=== PATIENT | female | born 2000 | race Caucasian/White ===

== ENCOUNTER 2019-08-02 22:49 | Emergency (ER) | payer OTHER ==
[2019-08-02] MEDS ORDERED: HYDROmorphone 0.5 MG/0.5 ML Syringe IVPUSH ONE (23:22)
[2019-08-02] MEDS ORDERED: Ondansetron 4 MG/2 ML SDV IVPUSH ONE (23:22)
--- NOTE | 2019-08-02 23:25 | EDM.PDOC ---
ED HPI GENERAL MEDICAL PROBLEM - General Chief Complaint: Abdominal Pain Stated Complaint: LEFT SIDE PAIN Time Seen by Provider: 08/02/19 23:03 Source of Information: Reports: Patient History Limitations: Reports: No Limitations - History of Present Illness INITIAL COMMENTS - FREE TEXT/NARRATIVE: Ms. Bustamante is a very pleasant 19-year-old woman with no significant past medical history, who reports that she developed left-sided abdominal pain late Friday afternoon, 07/31/2019. She describes the pain as crampy and sharp in character. It radiates up to her ribs and chest on the left side. It waxes and wanes. It is made worse if she is sitting still or lying down, better if she is moving. Standing feels best, but she also felt relief when riding a horse. She has had nausea and vomiting, but no constipation or diarrhea. She reports feeling lightheaded this afternoon. No recent fever. No recent urinary symptoms. She reports having a slight vaginal discharge, white and milky in character, without any appreciable order, for about one week. She denies vaginal itching. No prior similar symptoms. The patient states that she has taken Tylenol and Midol, and Tums, without much relief. The patient states that she has had a Mirena IUD for about 5 years. She is sexually active. She has taken 2 home tests recently, both negative. Her LMP was on 06/23/2019. The patient does not have a PCP or [facility]. Left Lower Abdomen Pain Score (Numeric/FACES): 7 - Related Data Allergies Allergy/AdvReac Type Severity Reaction Status Date / Time No Known Allergies Allergy Verified 08/02/19 23:00 Home Meds: Home Meds . [No Known Home Meds] 08/02/19 [History] Past Medical History - Past Surgical History HEENT Surgical History: Reports: Oral Surgery (wisdom teeth extraction) Social & Family History - Tobacco Use Smoking Status *Q: Never Smoker - Alcohol Use Alcohol Use History: Yes Alcohol Use Frequency: Socially - Recreational Drug Use Recreational Drug Use: Yes Drug Use in Last 12 Months: No Recreational Drug Type: Reports: Marijuana/Hashish (last smoked 2017) - Living Situation & Occupation Living situation: Reports: Single, Other (with a friend) Occupation: Student ([employer]) ED ROS GENERAL - Review of Systems Review Of Systems: ROS reveals no pertinent complaints other than HPI. ED EXAM, GI/ABD - Physical Exam Exam: See Below Exam Limited By: No Limitations General Appearance: Alert, WD/WN, No Apparent Distress Eyes: Bilateral: Normal Appearance, EOMI Ears: Normal External Exam, Hearing Grossly Normal Nose: Normal Inspection Throat/Mouth: Normal Inspection, Normal Lips, Normal Voice, No Airway Compromise Head: Atraumatic, Normocephalic Neck: Normal Inspection, Full Range of Motion Respiratory/Chest: No Respiratory Distress, Lungs Clear, Normal Breath Sounds, No Accessory Muscle Use Cardiovascular: Normal Peripheral Pulses, Regular Rate, Rhythm, No Edema, No Gallop, No JVD, No Murmur, No Rub GI/Abdominal Exam: Normal Bowel Sounds, Soft, No Organomegaly, No Distention, No Abnormal Bruit, No Mass, Tender (Left lower quadrant/pelvis only. Essentially nontender elsewhere, although palpation of the right lower quadrant induces some pain in the left lower quadrant.). No: Rebound (Female) Exam: Normal External Exam, Vaginal Discharge (Thick white, clumpy, somewhat adherent, but easily removed, without bleeding or signs of vaginitis/ inflammation), Other (Anteverted uterus. Genital culture, wet prep, and GC/ chlamydia by PCR swab collected.). No: Adnexal Tenderness, Cervical Lesions, Cervix Motion Tenderness, Vaginal Bleeding Rectal (Female) Exam: Deferred Back Exam: Normal Inspection, Full Range of Motion, Other (Mild tenderness to palpation of the lower back, bilaterally). No: CVA Tenderness (L), CVA Tenderness (R) Extremities: Normal Inspection, Normal Range of Motion, No Pedal Edema, Normal Capillary Refill Neurological: Alert, Oriented, Normal Cognition, No Motor/Sensory Deficits Psychiatric: Normal Affect Skin Exam: Warm, Dry, Intact, Normal Color, No Rash Course - Vital Signs Last Recorded V/S: Last Vital Signs Temp 36.9 C 08/02/19 23:01 Pulse 68 08/02/19 23:01 Resp 18 08/02/19 23:01 BP 124/75 08/02/19 23:01 Pulse Ox 100 08/02/19 23:01 - Orders/Labs/Meds Orders: Active Orders 24 hr Category Date Time Status Transvaginal Non OB [US] Stat Exams 08/02/19 23:21 Taken CULTURE GENITAL [RM] Stat Lab 08/03/19 01:11 Received Labs: Laboratory Tests 08/02/19 08/02/19 08/02/19 Range/Units 23:30 23:30 23:30 WBC 11.57 H (3.98-10.04) K/mm3 RBC 4.64 (3.98-5.22) M/mm3 Hgb 14.2 (11.2-15.7) gm/dl Hct 39.8 (34.1-44.9) % MCV 85.8 (79.4-94.8) fl MCH 30.6 (25.6-32.2) pg MCHC 35.7 H (32.2-35.5) g/dl RDW Std Deviation 38.1 (36.4-46.3) fL Plt Count 247 (182-369) K/mm3 MPV 10.8 (9.4-12.3) fl Neut % (Auto) 64.7 (34.0-71.1) % Lymph % (Auto) 23.9 (19.3-51.7) % Stevens % (Auto) 10.2 (4.7-12.5) % Eos % (Auto) 1.0 (0.7-5.8) Baso % (Auto) 0.2 (0.1-1.2) % Neut # (Auto) 7.49 H (1.56-6.13) K/mm3 Lymph # (Auto) 2.77 (1.18-3.74) K/mm3 Stevens # (Auto) 1.18 H (0.24-0.36) K/mm3 Eos # (Auto) 0.11 (0.04-0.36) K/mm3 Baso # (Auto) 0.02 (0.01-0.08) K/mm3 Manual Slide Review Abnormal smear Sodium 135 L (136-145) mEq/L Potassium 3.3 L (3.5-5.1) mEq/L Chloride 100 (98-107) mEq/L Carbon Dioxide 27 (21-32) mEq/L Anion Gap 11.3 (5-15) BUN 14 (7-18) mg/dL Creatinine 0.7 (0.55-1.02) mg/dL Est Cr Clr Drug Dosing TNP Estimated GFR (MDRD) > 60 (>60) mL/min BUN/Creatinine Ratio 20.0 H (14-18) Glucose 88 (74-106) mg/dL Calcium 9.7 (8.5-10.1) mg/dL Total Bilirubin 0.4 (0.2-1.0) mg/dL AST 12 L (15-37) U/L ALT 16 (14-59) U/L Alkaline Phosphatase 55 (46-116) U/L Total Protein 7.7 (6.4-8.2) g/dl Albumin 4.1 (3.4-5.0) g/dl Globulin 3.6 gm/dL Albumin/Globulin Ratio 1.1 (1-2) HCG, Quant < 1.0 mIU/mL Urine Color (Yellow) Urine Appearance (Clear) Urine pH (5.0-8.0) Ur Specific [place] (1.005-1.030) Urine Protein (Negative) Urine Glucose (UA) (Negative) Urine Ketones (Negative) Urine Occult Blood (Negative) Urine Nitrite (Negative) Urine Bilirubin (Negative) Urine Urobilinogen (0.2-1.0) Ur Leukocyte Esterase (Negative) Urine RBC (0-5) /hpf Urine WBC (0-5) /hpf Ur Squamous Epith Cells (0-5) /hpf Urine Bacteria (FEW) /hpf Hyaline Casts (0-5) /lpf Urine Mucus (FEW) /hpf C trachomatis DNA (PCR) N gonorrhoeae DNA (PCR) 08/02/19 08/03/19 Range/Units 23:50 01:14 WBC (3.98-10.04) K/mm3 RBC (3.98-5.22) M/mm3 Hgb (11.2-15.7) gm/dl Hct (34.1-44.9) % MCV (79.4-94.8) fl MCH (25.6-32.2) pg MCHC (32.2-35.5) g/dl RDW Std Deviation (36.4-46.3) fL Plt Count (182-369) K/mm3 MPV (9.4-12.3) fl Neut % (Auto) (34.0-71.1) % Lymph % (Auto) (19.3-51.7) % Stevens % (Auto) (4.7-12.5) % Eos % (Auto) (0.7-5.8) Baso % (Auto) (0.1-1.2) % Neut # (Auto) (1.56-6.13) K/mm3 Lymph # (Auto) (1.18-3.74) K/mm3 Stevens # (Auto) (0.24-0.36) K/mm3 Eos # (Auto) (0.04-0.36) K/mm3 Baso # (Auto) (0.01-0.08) K/mm3 Manual Slide Review Sodium (136-145) mEq/L Potassium (3.5-5.1) mEq/L Chloride (98-107) mEq/L Carbon Dioxide (21-32) mEq/L Anion Gap (5-15) BUN (7-18) mg/dL Creatinine (0.55-1.02) mg/dL Est Cr Clr Drug Dosing Estimated GFR (MDRD) (>60) mL/min BUN/Creatinine Ratio (14-18) Glucose (74-106) mg/dL Calcium (8.5-10.1) mg/dL Total Bilirubin (0.2-1.0) mg/dL AST (15-37) U/L ALT (14-59) U/L Alkaline Phosphatase (46-116) U/L Total Protein (6.4-8.2) g/dl Albumin (3.4-5.0) g/dl Globulin gm/dL Albumin/Globulin Ratio (1-2) HCG, Quant mIU/mL Urine Color Light yellow (Yellow) Urine Appearance Slt cloudy H (Clear) Urine pH 6.0 (5.0-8.0) Ur Specific [place] 1.015 (1.005-1.030) Urine Protein Negative (Negative) Urine Glucose (UA) Negative (Negative) Urine Ketones Negative (Negative) Urine Occult Blood Negative (Negative) Urine Nitrite Negative (Negative) Urine Bilirubin Negative (Negative) Urine Urobilinogen 0.2 (0.2-1.0) Ur Leukocyte Esterase Negative (Negative) Urine RBC 0-5 (0-5) /hpf Urine WBC 0-5 (0-5) /hpf Ur Squamous Epith Cells 0-5 (0-5) /hpf Urine Bacteria Few (FEW) /hpf Hyaline Casts 0-5 (0-5) /lpf Urine Mucus Rare (FEW) /hpf C trachomatis DNA (PCR) Not detected N gonorrhoeae DNA (PCR) Not detected Meds: Medications Discontinued Medications Generic Name Dose Route Start Last Admin Trade Name Abraham PRN Reason Stop Dose Admin Hydromorphone HCl 0.5 mg 08/02/19 23:22 08/02/19 23:48 Dilaudid IVPUSH 08/02/19 23:23 Not Given ONETIME ONE Sodium Chloride 1,000 mls @ 150 mls/hr 08/02/19 23:30 08/02/19 23:36 Normal Saline IV 150 mls/hr ASDIRECTED CHANO Administration Ketorolac Tromethamine 30 mg 08/02/19 23:47 08/02/19 23:52 Toradol IVPUSH 08/02/19 23:48 30 mg ONETIME STA Administration Ondansetron HCl 4 mg 08/02/19 23:22 08/02/19 23:33 Zofran IVPUSH 08/02/19 23:23 4 mg ONETIME ONE Administration - Re-Assessments/Exams Free Text/Narrative Re-Assessment/Exam: 08/02/19 23:23 Based on the patient's history and physical examination, I suspect that she is suffering from a ruptured left ovarian cyst. I have ordered blood work that includes a quantitative hCG (to rule out an ectopic ), a urinalysis, and a transvaginal pelvic ultrasound. In the meantime, the patient will receive IV fluid, some Dilaudid, and Zofran. I think it much less likely, but it is remotely possible that the patient is suffering from a left ureterolith. If her urine has blood, we may need to consider a noncontrast CT of the abdomen and pelvis. 08/02/19 23:47 Notified by Blaze DOUGLAS that the patient told her that she does not have a ride, therefore cannot be given the Dilaudid that was ordered earlier. I have therefore canceled the Dilaudid and ordered Toradol instead. 08/03/19 02:01 The patient's CBC is remarkable for a WBC count mildly elevated at 11.57, with the remainder of her CBC being unremarkable. Her CMP is remarkable for a sodium mildly depressed at 135 and a potassium depressed at 3.3, with the remainder of her CMP being unremarkable. Her quantitative hCG is less than 1.0. Her urinalysis is unremarkable. Her pelvic wet prep is negative for yeast, Trichomonas, and clue cells, with few WBCs. The pelvic ultrasound results and GC/chlamydia by PCR are still pending. The patient's wet prep is essentially negative, and does not compel any treatment. 08/03/19 02:23 Transvaginal pelvic ultrasound is read by [facility] as: 1. 3.6 x 4.8 cm complex left ovary and cyst consistent with a hemorrhagic cyst 2. Small amount of free fluid in the cul-de-sac 08/03/19 02:27 Test results discussed with the patient. As above, the patient appears to be suffering from a hemorrhagic ovarian cyst. The treatment is an NSAID such as ibuprofen or naproxen. The remainder of her workup is unremarkable, although her GC/chlamydia by PCR is still pending. If that returns positive, I will notify the patient. The patient may safely be discharged home. 08/03/19 03:13 The GC and chlamydia by PCR have both returned negative. Departure - Departure Time of Disposition: 02:28 Disposition: Home, Self-Care 01 Condition: Good Clinical Impression: Hemorrhagic cyst of left ovary - Discharge Information *PRESCRIPTION DRUG MONITORING PROGRAM REVIEWED*: Not Applicable *COPY OF PRESCRIPTION DRUG MONITORING REPORT IN PATIENT NINA: Not Applicable Instructions: Ovarian Cyst, [id number] Referrals: Donna Nunez MD [Physician] - Forms: ED Department Discharge Additional Instructions: You were seen in the emergency room for left lower abdominal/pelvic pain, nausea , vomiting, and lightheadedness. Workup in the ER included blood work, a urinalysis, pelvic cultures and wet prep , and a transvaginal pelvic ultrasound. The ultrasound found that you have a left hemorrhagic ovarian cyst, which is most likely the cause of your symptoms. The remainder of your workup was unremarkable. We recommend that you take [id number] ibuprofen, 3 tablets (600 mg), with food, every 8 hours, OR 2 tablets of Aleve, with food, every 12 hours, as needed for discomfort. A gonorrhea/Chlamydia test was sent, but has not yet resulted. We will contact you if either returns positive. Follow-up with Dr. Donna Nunez as needed. If any other problems, please do not hesitate to return to the ER. - My Orders Last 24 Hours: My Active Orders 08/02/19 23:21 Transvaginal Non OB [US] Stat 08/03/19 01:11 CULTURE GENITAL [RM] Stat - Assessment/Plan Last 24 Hours: My Active Orders 08/02/19 23:21 Transvaginal Non OB [US] Stat 08/03/19 01:11 CULTURE GENITAL [] Stat
[2019-08-02] MEDS ORDERED: Sodium Chloride 0.9% 1,000 ML IV SCH (23:30)
[2019-08-02] MEDS ORDERED: Ketorolac 30 MG/ML SDV IVPUSH STA (23:47)
[2019-08-03 02:51] LABS: C. TRACHOMATIS BY PCR NOT DETECTED; N. GONORRHOEAE BY PCR NOT DETECTED
--- NOTE | 2019-08-03 07:48 | US ---
Pelvic ultrasound: Multiple real-time images were obtained transvaginally. Comparison: No previous pelvic imaging is available. Findings: Complicated hypoechoic finding is noted within the left ovary measuring 3.6 x 4.5 x 4.1 cm. This is most likely due to a hemorrhagic cyst. Right ovary is unremarkable. Small amount of free fluid is noted within the cul-de-sac. Uterus is anteverted. Endometrium is normal in thickness at 1.76 mm. IUD is present within the endometrial cavity. Measurements: Uterus: Length 8.1 cm, AP height 3.1 cm,transverse width 5.0 cm Right ovary: 4.4 x 1.4 x 2.3 cm Left ovary: 5.3 x 3.8 x 4.6 cm Impression: 1. Complicated cyst within the left ovary measuring up to 4.5 cm. This is most likely due to hemorrhagic cyst. Follow-up exam could be considered in 3-4 months to make sure finding resolves. 2. Small amount of fluid within the cul-de-sac believed to be physiologic. 3. IUD is present within the endometrial cavity. Diagnostic code #3 I agree with preliminary report from [facility], finalized on 08/03/19, 2:52 AM Central Time
== END 2019-08-03 02:44 | disposition home or self-care (01) ==
LOC: JD.ED 22:49
DX: N83.202 Unspecified ovarian cyst, left side (principal)
CPT/HCPCS: 36415; 76830; 80053; 81001; 84702; 85025; 87070; 87210; 87491; 87591; 87808; 96361; 96374; 96375; 99284; J1885; J2405; J7040